=== PATIENT | female | born 1945 | race Caucasian/White ===

== ENCOUNTER 2018-02-21 01:12 | Outpatient (CLI) | payer MEDICARE, BC | END 2018-02-21 23:59 | disposition home or self-care (01) | LOC: DIABETIC 01:12 | PROVIDERS: ATTEND Specialist | DX: E11.9 Type 2 diabetes mellitus without complications (principal) | CPT/HCPCS: G0108 ==

== ENCOUNTER 2018-06-16 04:50 | Outpatient (CLI) | payer MEDICARE, BC | END 2018-06-16 23:59 | disposition home or self-care (01) | LOC: DIABETIC 04:50 | PROVIDERS: ATTEND Specialist | DX: E11.9 Type 2 diabetes mellitus without complications (principal) | CPT/HCPCS: G0108 ==

== ENCOUNTER 2018-10-17 01:42 | Outpatient (CLI) | payer MEDICARE, BC | END 2018-10-17 23:59 | disposition home or self-care (01) | LOC: DIABETIC 01:42 | PROVIDERS: ATTEND Specialist | DX: E11.65 Type 2 diabetes mellitus with hyperglycemia (principal); Z79.82 Long term (current) use of aspirin; Z79.84 Long term (current) use of oral hypoglycemic drugs | CPT/HCPCS: G0108 ==

== ENCOUNTER 2019-01-18 02:23 | Outpatient (CLI) | payer MEDICARE, BC | END 2019-01-18 23:59 | disposition home or self-care (01) | LOC: DIABETIC 02:23 | PROVIDERS: ATTEND Specialist | DX: E11.65 Type 2 diabetes mellitus with hyperglycemia (principal); Z79.82 Long term (current) use of aspirin; Z79.84 Long term (current) use of oral hypoglycemic drugs | CPT/HCPCS: G0108 ==

== ENCOUNTER 2019-06-14 08:00 | Outpatient (CLI) | payer MEDICARE, BC | END 2019-06-14 23:59 | disposition home or self-care (01) | LOC: DIABETIC 08:00 | PROVIDERS: ATTEND Specialist | DX: E11.65 Type 2 diabetes mellitus with hyperglycemia (principal); Z79.82 Long term (current) use of aspirin; Z79.899 Other long term (current) drug therapy; Z79.84 Long term (current) use of oral hypoglycemic drugs | CPT/HCPCS: G0108 ==

== ENCOUNTER 2019-09-13 03:38 | Outpatient (CLI) | payer MEDICARE, BC | END 2019-09-13 23:59 | disposition home or self-care (01) | LOC: DIABETIC 03:38 | PROVIDERS: ATTEND Specialist | DX: E11.65 Type 2 diabetes mellitus with hyperglycemia (principal); Z79.84 Long term (current) use of oral hypoglycemic drugs; Z79.82 Long term (current) use of aspirin; Z79.899 Other long term (current) drug therapy | CPT/HCPCS: G0108 ==

== ENCOUNTER 2019-12-26 04:17 | Outpatient (CLI) | payer MEDICARE, BC | END 2019-12-26 23:59 | disposition home or self-care (01) | LOC: DIABETIC 04:17 | PROVIDERS: ATTEND Specialist | DX: E11.65 Type 2 diabetes mellitus with hyperglycemia (principal); Z79.84 Long term (current) use of oral hypoglycemic drugs | CPT/HCPCS: G0108 ==